=== PATIENT | male | born 1940 | race Caucasian/White ===

== ENCOUNTER 2023-11-10 15:16 | Inpatient (IN) ==
--- NOTE | 2023-11-10 15:23 | DR.WEAKNES ---
HPI Time Seen Time Seen by Provider: 11/10/23 15:23 Complaints Chief Complaint Doctors Comments: Patient presents with complaint of generalized weakness. He states that he has had several surgeries in the past 9 days: pacemaker placement,stent placement at [facility].Patient was d/c in the past several days from [facility] and presents with severe generalized weakness. Patient denies:fever,sob,n,v Timing Symptom Onset: Unknown Context Stroke Symptoms: None PMH PMH Past Medical History: Coronary Artery Disease, Dyslipidemia, Hypertension and GA Past Surgical History: Yes Surgical History: Tonsillectomy Family History Family Medical History: Cancer, GA, Coronary Artery Disease and Hypertension Social History Do you use any recreational Drugs:: No ROS Review of Systems Constitutional: Chills; negative Fever Eyes: No Symptoms Reported Respiratoy: No Symptoms Reported Cardiovascular: No Symptoms Reported Gastrointestinal/Abdominal: No Symptoms Reported Genitourinary: No Symptoms Reported Neurological: Headache and Weakness Musculoskeletal: No Symptoms Reported Integumentary: No Symptoms Reported Hematologic/Lymphatic: No Symptoms Reported Endocrine: No Symptoms Reported Psychiatric: No Symptoms Reported All Other Systems: Reviewed and Negative PE Vital Signs Vitals: Vital Signs Temperature 98.5 F Pulse Rate 72 Pulse Rate 75 Pulse Rate 69 Pulse Rate 79 Pulse Rate 70 Pulse Rate 97 Pulse Rate 77 Pulse Rate 74 Pulse Rate 70 Pulse Rate 70 Pulse Rate 70 Pulse Rate 86 Pulse Rate 75 Pulse Rate 68 Pulse Rate 85 Pulse Rate 71 Pulse Rate 70 Pulse Rate 73 Pulse Rate 73 Pulse Rate 71 Pulse Rate 69 Pulse Rate 71 Pulse Rate 75 Pulse Rate 76 Pulse Rate 74 Pulse Rate 69 Pulse Rate 70 Pulse Rate 79 Pulse Rate 69 Pulse Rate 69 Pulse Rate 71 Respiratory Rate 11 Respiratory Rate 9 Respiratory Rate 11 Respiratory Rate 9 Respiratory Rate 17 Respiratory Rate 13 Respiratory Rate 12 Blood Pressure 169/104 Blood Pressure 178/98 Blood Pressure 169/93 Blood Pressure 169/93 Blood Pressure 178/102 Blood Pressure 170/96 Blood Pressure 210/108 Blood Pressure 162/99 Blood Pressure 164/95 Blood Pressure 187/106 Blood Pressure 195/104 Blood Pressure 197/95 Blood Pressure 175/98 Blood Pressure 169/99 Blood Pressure 182/100 O2 Sat by Pulse Oximetry 96 O2 Sat by Pulse Oximetry 97 O2 Sat by Pulse Oximetry 98 O2 Sat by Pulse Oximetry 97 O2 Sat by Pulse Oximetry 97 O2 Sat by Pulse Oximetry 96 O2 Sat by Pulse Oximetry 96 O2 Sat by Pulse Oximetry 97 O2 Sat by Pulse Oximetry 96 O2 Sat by Pulse Oximetry 98 O2 Sat by Pulse Oximetry 97 O2 Sat by Pulse Oximetry 95 O2 Sat by Pulse Oximetry 97 O2 Sat by Pulse Oximetry 95 O2 Sat by Pulse Oximetry 97 O2 Sat by Pulse Oximetry 98 O2 Sat by Pulse Oximetry 98 O2 Sat by Pulse Oximetry 99 O2 Sat by Pulse Oximetry 99 O2 Sat by Pulse Oximetry 98 O2 Sat by Pulse Oximetry 96 O2 Sat by Pulse Oximetry 98 O2 Sat by Pulse Oximetry 98 O2 Sat by Pulse Oximetry 97 O2 Sat by Pulse Oximetry 98 O2 Sat by Pulse Oximetry 97 O2 Sat by Pulse Oximetry 96 O2 Sat by Pulse Oximetry 97 O2 Sat by Pulse Oximetry 96 O2 Sat by Pulse Oximetry 97 O2 Sat by Pulse Oximetry 98 General Limitations: No Limitations General Appearance: Alert and In No Apparent Distress Head Head Exam: Normal Inspection Eyes Eye exam: Normal Appearance Eyelids: Normal Inspection: Bilateral Pupils: Regular, Round: Bilateral Sclera/Conjunctival: Normal Inspection: Bilateral Anterior Chamber: Normal Inspection: Bilateral ENT ENT Exam: Normal Exam Mouth Exam: Normal Inspection Throat Exam: Normal Inspection Neck Neck Exam: Normal Inspection Chest Chest Inspection: Normal Inspection Respiratory Respiratory Exam: Normal Lung Sounds Bilat Respiratory Exam: Bilateral: Clear to Auscultation Cardiovascular Cardiovascular Exam: Regular Rate and Normal Rhythm Abdominal Exam Abdominal Exam: Normal Inspection, Normal Bowel Sounds and Soft Extremities Extremities Exam: Normal Inspection Back Back Exam: Normal Inspection Neurologic Neurological Exam: Alert and Oriented X3 Psychiatric Psychiatric Exam: Normal Affect and Normal Mood Skin Skin Exam: Warm, Dry, Intact and Normal Color MDM Differential Diagnosis Differential Diagnosis: Electrolyte Disorder Differential Diagnosis Comment: GA,Pneumonia,UTI COURSE Treatment Treatment: Patient was placed in monitored room his sodium was 129 and he was given normal saline 500 mL bolus and then placed on normal saline at 80 mL an hour, his chest x-ray revealed mild CHF and possible interstitial pneumonia. He had an elevated D- dimer and the CTA of his chest revealed no PE, bilateral pulmonary nodules, bilateral pneumonia.Patient has a pos Covid-19. Patient received Levaquin 750 mg IV. Patient had an elevation of his blood pressure to 210/108 and was given clonidine 0.1 mg p.o. His repeat pressure was 178/102. Patient has a normal white count, stable hemoglobin and hematocrit, his CMP was otherwise stable, his CRP and lactic acid are more in the normal range. Patient had a magnesium of 1.8 and received magnesium IV 2 g. Patient continues to be stable in the ED. Discussed case with Dr. Markham who has accepted the patient to his service. [facility] Labs Reviewed Laboratory Results Reviewed?: Yes 11/10/23 15:40 11/10/23 15:40 Laboratory: WBC 4.7 X10^3/uL (3.6-10.0) 11/10/23 15:40 RBC 3.84 X10^6/uL (4.7-6.0) L 11/10/23 15:40 Hgb 12.7 g/dL (13.5-18.0) L 11/10/23 15:40 Hct 36.5 % (42.0-54.0) L 11/10/23 15:40 MCV 95.1 fL (80.0-100.0) 11/10/23 15:40 MCH 33.2 pg (27.0-34.0) 11/10/23 15:40 MCHC 34.9 g/dL (33.0-35.0) 11/10/23 15:40 RDW 12.8 % (11.6-16.5) 11/10/23 15:40 Plt Count 222 X10^3/uL (150.0-450.0) 11/10/23 15:40 MPV 7.9 fL (7.4-11.0) 11/10/23 15:40 Neut % (Auto) 60.5 % (42.0-75.0) 11/10/23 15:40 Lymph % (Auto) 24.6 % (21.0-51.0) 11/10/23 15:40 [place] % (Auto) 10.9 % (0.0-13.0) 11/10/23 15:40 Eos % (Auto) 3.3 % (0.9-2.9) H 11/10/23 15:40 Baso % (Auto) 0.7 % (0.2-1.0) 11/10/23 15:40 Neut # (Auto) 2.8 x10^3/uL (2.2-4.8) 11/10/23 15:40 Lymph # (Auto) 1.1 X10^3/uL (1.3-2.9) L 11/10/23 15:40 [place] # (Auto) 0.5 x10^3/uL (0.3-0.8) 11/10/23 15:40 Eos # (Auto) 0.2 x10^3/uL (0.0-0.2) 11/10/23 15:40 Baso # (Auto) 0.0 X10^3/uL (0.0-0.1) 11/10/23 15:40 Absolute Nucleated RBC 0.1 /100WBC 11/10/23 15:40 D-Dimer 0.66 ug/ml (0.0-0.57) H 11/10/23 15:40 Sodium 129 mmol/L (136-145) L 11/10/23 15:40 Corrected Sodium TNP 11/10/23 15:40 Potassium 4.1 mmol/L (3.5-5.1) 11/10/23 15:40 Chloride 95 mmol/L (98-107) L 11/10/23 15:40 Carbon Dioxide 27.8 mmol/L (21-32) 11/10/23 15:40 BUN 13 mg/dL (7-18) 11/10/23 15:40 Creatinine 1.09 mg/dL (0.70-1.30) 11/10/23 15:40 Est GFR (MDRD) Af Amer > 60 (>60) 11/10/23 15:40 Est GFR (MDRD) Non-Af > 60 (>60) 11/10/23 15:40 Glucose 100 mg/dL (65-99) H 11/10/23 15:40 Lactic Acid 0.8 mmol/L (0.4-2.0) 11/10/23 15:40 Calcium 8.6 mg/dL (8.5-10.1) 11/10/23 15:40 Corrected Calcium 9.2 mg/dL (8.5-10.1) 11/10/23 15:40 Magnesium 1.8 mg/dL (2.0-2.9) L 11/10/23 15:40 Total Bilirubin 0.50 mg/dL (0.2-1.0) 11/10/23 15:40 AST 18 Units/L (15-37) 11/10/23 15:40 ALT 13 Units/L (12-78) 11/10/23 15:40 Alkaline Phosphatase 62 Units/L (46-116) 11/10/23 15:40 Creatine Kinase 50 Units/L (39-308) 11/10/23 15:40 Troponin I High Sens 22.8 ng/L (4.0-60.0) 11/10/23 21:39 C-Reactive Protein 0.70 mg/L (0-3.0) 11/10/23 15:40 B-Natriuretic Peptide 114 pg/mL (0-79) H 11/10/23 15:40 Total Protein 6.4 g/dL (6.4-8.2) 11/10/23 15:40 Albumin 3.3 g/dL (3.4-5.0) L 11/10/23 15:40 Globulin 3.1 g/dL (2.5-4.5) 11/10/23 15:40 Albumin/Globulin Ratio 1.1 Ratio (1.1-2.1) 11/10/23 15:40 Specimen Type Clean catch urine 11/10/23 16:27 Urine Color Pale yellow (YELLOW) 11/10/23 16:27 Urine Appearance Clear (CLEAR) 11/10/23 16:27 Urine pH 7.0 (5.0 - 8.0) 11/10/23 16:27 Ur Specific [place] 1.015 (1.000-1.030) 11/10/23 16:27 Urine Protein Negative (NEGATIVE) 11/10/23 16:27 Urine Glucose (UA) Negative (NEGATIVE) 11/10/23 16:27 Urine Ketones Negative (NEGATIVE) 11/10/23 16:27 Urine Blood Negative (NEGATIVE) 11/10/23 16:27 Urine Nitrite Negative (NEGATIVE) 11/10/23 16:27 Urine Bilirubin Negative (NEGATIVE) 11/10/23 16:27 Urine Urobilinogen Normal (NORMAL) 11/10/23 16:27 Ur Leukocyte Esterase Negative (NEGATIVE) 11/10/23 16:27 SARS-CoV-2 (PCR) Positive (NEGATIVE) A 11/10/23 15:42 Influenza Type A (PCR) Negative (NEGATIVE) 11/10/23 15:42 Influenza Type B (PCR) Negative (NEGATIVE) 11/10/23 15:42 RSV (PCR) Negative (NEGATIVE) 11/10/23 15:42 XRAY XRAY Interpreted by: Radiologist X-ray Results: EXAM: CHEST X-RAY HISTORY: Shortness of breath. Weakness. TECHNIQUE: AP CXR dated November 10, 2023 at 4:16 PM. COMPARISON: CXR dated October 30, 2023 FINDINGS: There is a left anterior chest wall subclavian cardiac pacemaker with intact pacer wires to the right atrium and right ventricle. There is mild cardiomegaly. There is aortic atherosclerosis. The pulmonary vascularity and interstitial markings are mildly prominent in keeping with minimal CHF or volume overload in the appropriate clinical setting (consider interstitial pneumonia in the appropriate clinical setting). There is no acute parenchymal infiltrate, pleural effusion, or pneumothorax seen. There is diffuse osteopenia. The visualized bony structures are otherwise within normal limits. IMPRESSION: 1. Findings consistent with minimal CHF or volume overload in the appropriate clinical setting (consider interstitial pneumonia in the appropriate clinical setting); new finding. 2. Recommend clinical correlation and appropriate follow-up evaluation to complete clearance. THIS IS AN ELECTRONICALLY VERIFIED FINAL REPORT 11/10/2023 4:29 PM - Electronically signed by Diane Van EXAM: CTA, CHEST HISTORY: ELEVATED D-DIMER; shortness of breath, WEAKNESS, PT IS POSITIVE FOR COVID COMPARISON: Frontal chest radiograph November 10, 2023 TECHNIQUE: CT angiography of the chest with intravenous contrast. Three-dimensional reconstructions and/or MIPS images were produced and reviewed. FINDINGS: Adequate bolus timing. Negative for pulmonary embolus. Heart is enlarged. Limited visualization of the upper abdomen demonstrates no acute process. 7 mm noncalcified pulmonary nodule right middle lobe. There is a subjacent 8 mm noncalcified pulmonary nodule right middle lobe. There is an additional right middle lobe noncalcified pulmonary nodule measuring 7 mm. 6 mm non calcified pulmonary nodule right upper lobe. Mild ground-glass airspace opacities in the left lower lobe and the right upper lobe. There is a left lower lobe pulmonary cyst present spanning 2.6 cm. Scattered micronodular densities are present in the left upper lobe. There is a left upper lobe noncalcified nodular density spanning 8 mm anteriorly. Multilevel degenerative spinal changes and anterior osteophytes suggestive of DISH. IMPRESSION: Negative for pulmonary embolus. Mild airspace infiltrates bilaterally are nonspecific and could represent mild edema or developing pneumonia. Bilateral noncalcified pulmonary nodules are indeterminate and warrant short interval CT surveillance in 3 months. Dose reduction techniques including automated exposure control (AEC) and a djustment of mA and kv were utilized. THIS IS AN ELECTRONICALLY VERIFIED FINAL REPORT 11/10/2023 6:01 PM - Electronically signed by Marshall Mendoza MD Opioid Opioid Risk Tool Age (Marquise box if 16-45): No History of Preadolescent Sexual Abuse: No Total: 0 Total Score Risk Category: Low Risk Copyright: [facility] predicting aberrant behaviors Discharge Plan Diagnosis Discharge Problem: Weakness, Bilateral pneumonia, COVID-19, Acute hyponatremia, Hypomagnesemia, Mild congestive heart failure Discharge Plan Patient Disposition: ADMITTED INPATIENT Condition: Stable Prescriptions: No Action sotalol 80 mg Tablet 40 mg PO BID tramadol 50 mg Tablet 50 mg PO QHS tamsulosin [Flomax] 0.4 mg Capsule 0.4 mg PO QDAY pantoprazole [Protonix] 40 mg Tablet,Delayed Release (Dr/Ec) 40 mg PO BID lovastatin 20 mg Tablet 20 mg PO QPM Brilinta 90 mg Tablet 90 mg PO BID Eliquis 5 mg Tablet 5 mg PO BID Health Concerns: Post Hospitalization: new medications and changes needed to prevent readmission or further decline. Pt educated and given instructions on all concerns. Plan of Treatment: Continue with present treatment and follow up plan. Pt is to keep follow up appointment as instructed and take medications as ordered. Orders to Discharge Patient Discharge Orders: Transfer (Routine); Ordered 11/10/23 Ordered By: Gladys Jimenez Follow ups/Referrals Follow ups/Referrals: Carl Maloney [Primary Care Provider] - 3 days Instructions Stand Alone Forms: Post Hospital Follow Up Care
[2023-11-10 15:45] LABS: BASOPHILS % (AUTO) 0.7 % (0.2-1.0); EOSINOPHILS # (AUTO) 0.2 x10^3/uL (0.0-0.2); EOSINOPHILS % (AUTO) 3.3 % (0.9-2.9); HEMATOCRIT 36.5 % (42.0-54.0); HEMOGLOBIN 12.7 g/dL (13.5-18.0); LYMPHOCYTES # (AUTO) 1.1 X10^3/uL (1.3-2.9); LYMPHOCYTES % (AUTO) 24.6 % (21.0-51.0); MEAN CORPUSCULAR HEMOGLOBIN 33.2 pg (27.0-34.0); MEAN CORPUSCULAR HGB CONC 34.9 g/dL (33.0-35.0); MEAN CORPUSCULAR VOLUME 95.1 fL (80.0-100.0); MEAN PLATELET VOLUME 7.9 fL (7.4-11.0); MONOCYTES # (AUTO) 0.5 x10^3/uL (0.3-0.8); MONOCYTES % (AUTO) 10.9 % (0.0-13.0); NEUTROPHILS # (AUTO) 2.8 x10^3/uL (2.2-4.8); NEUTROPHILS % (AUTO) 60.5 % (42.0-75.0); PLATELET COUNT 222 X10^3/uL (150.0-450.0); RED BLOOD COUNT 3.84 X10^6/uL (4.7-6.0); RED CELL DISTRIBUTION WIDTH 12.8 % (11.6-16.5); WHITE BLOOD COUNT 4.7 X10^3/uL (3.6-10.0)
--- NOTE | 2023-11-10 15:47 | EKG ---
Test Reason : weakness,infn,chf Blood Pressure : */* mmHG Vent. Rate : 70 BPM Atrial Rate : 70 BPM P-R Int : 216 ms QRS Dur : 108 ms QT Int : 418 ms P-R-T Axes : 13 -56 85 degrees QTc Int : 451 ms Atrial-paced rhythm with prolonged AV conduction Left anterior fascicular block Nonspecific T wave abnormality Abnormal ECG When compared with ECG of 30-OCT-2023 14:24, ST no longer elevated in Inferior leads ST no longer elevated in Anterolateral leads Confirmed by Juancarlos Mckinney MD ([id number]) on 11/11/2023 7:48:17 AM Referred By: Confirmed By: Juancarlos Mckinney MD
[2023-11-10 16:00] LABS: ALANINE AMINOTRANSFERASE 13 Units/L (12-78); ALBUMIN 3.3 g/dL (3.4-5.0); ALKALINE PHOSPHATASE 62 Units/L (46-116); ASPARTATE AMINO TRANSFERASE 18 Units/L (15-37); BLOOD UREA NITROGEN 13 mg/dL (7-18); CALCIUM 8.6 mg/dL (8.5-10.1); CARBON DIOXIDE 27.8 mmol/L (21-32); CHLORIDE 95 mmol/L (98-107); COR CA(FOR HYPOALB) 9.2 mg/dL (8.5-10.1); CREATINE KINASE 50 Units/L (39-308); CREATININE 1.09 mg/dL (0.70-1.30); GLUCOSE 100 mg/dL (65-99); MAGNESIUM 1.8 mg/dL (2.0-2.9); POTASSIUM 4.1 mmol/L (3.5-5.1); SODIUM 129 mmol/L (136-145); TOTAL PROTEIN 6.4 g/dL (6.4-8.2); eGFR NON BLACK RACES > 60 (>60)
[2023-11-10] MEDS ORDERED: NS 1,000 ML IV 1,000 ML ONE (16:19)
[2023-11-10] MEDS: NS 1,000 ML IV 1,000 ML IV SCH (16:27)
[2023-11-10] MEDS: MAGNESIUM SULFATE 1 GRAM/100 mL PREMIX 1 G/100 ML BAG IV ONE (16:28)
--- NOTE | 2023-11-10 16:32 | RAD ---
EXAM: CHEST X-RAYHISTORY: Shortness of breath. Weakness.TECHNIQUE: AP CXR dated November 10, 2023 at 4:16 PM.COMPARISON: CXR dated October 30, 2023FINDINGS:There is a left anterior chest wall subclavian cardiac pacemaker with intact pacer wires to the right atrium and right ventricle. There is mild cardiomegaly. There is aortic atherosclerosis.The pulmonary vascularity and interstitial markings are mildly prominent in keeping with minimal CHF or volume overload in the appropriate clinical setting (consider interstitial pneumonia in the appropriate clinical setting). There is no acute parenchymal infiltrate, pleural effusion, or pneumothorax seen.There is diffuse osteopenia. The visualized bony structures are otherwise within normal limits.IMPRESSION:1. Findings consistent with minimal CHF or volume overload in the appropriate clinical setting (consider interstitial pneumonia in the appropriate clinical setting); new finding.2. Recommend clinical correlation and appropriate follow-up evaluation to complete clearance.THIS IS AN ELECTRONICALLY VERIFIED FINAL REPORT11/10/2023 4:29 PM - Electronically signed by Diane Van
[2023-11-10 16:39] LABS: BILIRUBIN,URINE NEGATIVE (NEGATIVE); BLOOD/HEMOGLOBIN,URINE NEGATIVE (NEGATIVE); GLUCOSE, URINE NEGATIVE (NEGATIVE); KETONES,URINE NEGATIVE (NEGATIVE); LEUKOCYTE ESTERASE ,URINE NEGATIVE (NEGATIVE); NITRITES,URINE NEGATIVE (NEGATIVE); PROTEIN,URINE NEGATIVE (NEGATIVE); UROBILINOGEN,URINE NORMAL (NORMAL)
[2023-11-10 16:41] LABS: APPEARANCE,URINE CLEAR (CLEAR); COLOR,URINE PALE YELLOW (YELLOW)
[2023-11-10] MEDS: OMNIPAQUE 350 mg/mL 100 mL BTL 100 ML ONE (17:06)
--- NOTE | 2023-11-10 18:05 | CT ---
EXAM:CTA, CHESTHISTORY:ELEVATED D-DIMER; shortness of breath, WEAKNESS, PT IS POSITIVE FOR COVIDCOMPARISON:Frontal chest radiograph November 10, 2023TECHNIQUE:CT angiography of the chest with intravenous contrast. Three-dimensional reconstructions and/or MIPS images were produced and reviewed.FINDINGS:Adequate bolus timing. Negative for pulmonary embolus. Heart is enlarged. Limited visualization of the upper abdomen demonstrates no acute process.7 mm noncalcified pulmonary nodule right middle lobe. There is a subjacent 8 mm noncalcified pulmonary nodule right middle lobe. There is an additional right middle lobe noncalcified pulmonary nodule measuring 7 mm.6 mm non calcified pulmonary nodule right upper lobe. Mild ground-glass airspace opacities in the left lower lobe and the right upper lobe. There is a left lower lobe pulmonary cyst present spanning 2.6 cm. Scattered micronodular densities are present in the left upper lobe. There is a left upper lobe noncalcified nodular density spanning 8 mm anteriorly. Multilevel degenerative spinal changes and anterior osteophytes suggestive of DISH.IMPRESSION:Negative for pulmonary embolus.Mild airspace infiltrates bilaterally are nonspecific and could represent mild edema or developing pneumonia.Bilateral noncalcified pulmonary nodules are indeterminate and warrant short interval CT surveillance in 3 months.Dose reduction techniques including automated exposure control (AEC) and adjustment of mA and kv were utilized.THIS IS AN ELECTRONICALLY VERIFIED FINAL REPORT11/10/2023 6:01 PM - Electronically signed by Marshall Mendoza MD
[2023-11-10] MEDS: CATAPRES TAB 0.1 MG PO ONE ×2 (20:16→21:27)
[2023-11-10] MEDS ORDERED: CATAPRES TAB 0.1 MG ONE (20:16)
[2023-11-10] MEDS ORDERED: LEVAQUIN PREMIX IV 750 MG 750 MG/150 ML BAG IV ONE (20:30)
[2023-11-10] MEDS: LEVAQUIN PREMIX IV 750 MG 750 MG/150 ML BAG IV ONE (20:35)
--- NOTE | 2023-11-10 21:51 | EKG ---
Test Reason : weakness Blood Pressure : */* mmHG Vent. Rate : 70 BPM Atrial Rate : 70 BPM P-R Int : 218 ms QRS Dur : 108 ms QT Int : 432 ms P-R-T Axes : 37 -54 83 degrees QTc Int : 466 ms Atrial-paced rhythm with prolonged AV conduction Incomplete right bundle branch block Left anterior fascicular block Lateral infarct , age undetermined Abnormal ECG When compared with ECG of 10-NOV-2023 15:37, (Unconfirmed) No significant change was found Confirmed by Juancarlos Mckinney MD ([id number]) on 11/11/2023 7:46:51 AM Referred By: Confirmed By: Juancarlos Mckinney MD
[2023-11-10] MEDS ORDERED: OFIRMEV IV 1000 MG VIAL 1,000 MG/100 ML VIAL IV PRN (22:03)
[2023-11-10 23:52] VITALS: BMI 23.8
[2023-11-10] MEDS: NS 1,000 ML IV 1,000 ML ONE (23:53)
--- NOTE | 2023-11-11 00:25 | EKG ---
Test Reason : Weakness Blood Pressure : */* mmHG Vent. Rate : 70 BPM Atrial Rate : 70 BPM P-R Int : 222 ms QRS Dur : 110 ms QT Int : 422 ms P-R-T Axes : 30 -62 87 degrees QTc Int : 455 ms Atrial-paced rhythm with prolonged AV conduction Left anterior fascicular block Nonspecific T wave abnormality Abnormal ECG When compared with ECG of 10-NOV-2023 21:48, (Unconfirmed) No significant change was found Confirmed by Juancarlos Mckinney MD ([id number]) on 11/11/2023 7:46:10 AM Referred By: Confirmed By: Juancarlos Mckinney MD
[2023-11-11] MEDS ORDERED: MAGNESIUM SULFATE 1 GRAM/100 mL PREMIX 1 G/100 ML BAG IV SCH (02:00)
[2023-11-11 04:12] LABS: BASOPHILS % (AUTO) 0.4 % (0.2-1.0); EOSINOPHILS # (AUTO) 0.2 x10^3/uL (0.0-0.2); EOSINOPHILS % (AUTO) 3.5 % (0.9-2.9); HEMATOCRIT 35.9 % (42.0-54.0); HEMOGLOBIN 12.5 g/dL (13.5-18.0); LYMPHOCYTES # (AUTO) 0.8 X10^3/uL (1.3-2.9); LYMPHOCYTES % (AUTO) 17.6 % (21.0-51.0); MEAN CORPUSCULAR HEMOGLOBIN 33.1 pg (27.0-34.0); MEAN CORPUSCULAR HGB CONC 34.9 g/dL (33.0-35.0); MEAN CORPUSCULAR VOLUME 94.9 fL (80.0-100.0); MEAN PLATELET VOLUME 8.4 fL (7.4-11.0); MONOCYTES # (AUTO) 0.6 x10^3/uL (0.3-0.8); MONOCYTES % (AUTO) 13.2 % (0.0-13.0); NEUTROPHILS % (AUTO) 65.3 % (42.0-75.0); PLATELET COUNT 218 X10^3/uL (150.0-450.0); RED BLOOD COUNT 3.78 X10^6/uL (4.7-6.0); RED CELL DISTRIBUTION WIDTH 12.6 % (11.6-16.5); WHITE BLOOD COUNT 4.6 X10^3/uL (3.6-10.0)
[2023-11-11 04:23] LABS: ALANINE AMINOTRANSFERASE 11 Units/L (12-78); ALBUMIN 2.9 g/dL (3.4-5.0); ALKALINE PHOSPHATASE 58 Units/L (46-116); ASPARTATE AMINO TRANSFERASE 15 Units/L (15-37); BLOOD UREA NITROGEN 11 mg/dL (7-18); CALCIUM 8.4 mg/dL (8.5-10.1); CARBON DIOXIDE 27.1 mmol/L (21-32); CHLORIDE 100 mmol/L (98-107); COR CA(FOR HYPOALB) 9.3 mg/dL (8.5-10.1); CREATININE 1.02 mg/dL (0.70-1.30); GLUCOSE 99 mg/dL (65-99); POTASSIUM 3.9 mmol/L (3.5-5.1); SODIUM 133 mmol/L (136-145); TOTAL PROTEIN 5.9 g/dL (6.4-8.2); eGFR NON BLACK RACES > 60 (>60)
[2023-11-11] MEDS ORDERED: CONSULT PHARMACY - POTASSIUM & MAGNESIUM XX SCH (06:00)
[2023-11-11] MEDS: CATAPRES TAB 0.1 MG PO ONE (06:19)
[2023-11-11] MEDS: SALINE 0.9% 3 ML NEB TX ONE (06:39)
[2023-11-11] MEDS: CONSULT PHARMACY - POTASSIUM & MAGNESIUM XX SCH (07:19)
[2023-11-11] MEDS: MAALOX or MYLANTA PO PRN (08:55)
[2023-11-11] MEDS: BETAPACE AF PO SCH (08:56)
[2023-11-11] MEDS: FLOMAX PO SCH (08:56)
[2023-11-11] MEDS: ELIQUIS PO SCH (08:56)
[2023-11-11] MEDS: PROTONIX TAB 40 MG PO SCH (08:56)
[2023-11-11] MEDS: K-DUR TAB 20 MEQ PO SCH (08:56)
[2023-11-11] MEDS: MAG-OX TAB PO SCH (08:56)
[2023-11-11] MEDS: BRILINTA PO SCH (08:56)
--- NOTE | 2023-11-11 11:47 | DR.H&P ---
H&P - History & Physical for Day of: H&P Date: 11/10/23 - Chief Complaint Chief Complaint: WEAKNESS, S/P STEMI - History of Present Illness History of Present Illness: IS A 83 YEAR OLD PATIENT OF OURS. HIS MEDICAL HX INCLUDES: CAD, DYSLIPIDEMIA, HTN, GA, BPH, TONSILLECTOMY, CARDIAC STENTS, AND PRESENCE OF PACEMAKER. PATIENT PRESENTED TO THE ER WITH COMPLAINTS OF SEVERE GENERALIZED WEAKNESS. HE DENIES FEVER, SOB, N/V. PATIENT REPORTS THAT HE HAD A PACEMAKER PUT IN ABOUT TWO WEEKS AGO AT [facility]. HE REPORTS THAT AFTER DISCHARGE HOME, HE HAD TO PRESENT BACK TO THE ER ON 10/30/23 DUE TO CHEST PAIN AND WEAKNESS. HE WAS DIAGNOSED WITH A STEMI AT THAT TIME AND TRANSFERRED BACK TO [facility]. HE UNDERWENT CATHETERIZATION AND HAD CARDIAC STENTS PLACED. PATIENT REPORTS THAT SINCE DISCHARGE FROM [facility], HE HAS HAD INCREASING WEAKNESS. ON ARRIVAL TO THE HOSPITAL, HIS VITALS WERE: 98.5-69-12-97%RA-182/100. LABS WERE OBTAINED. WBC 4.7, RBC 3.84, HGB 12.7, HCT 36.5, PLT COUNT 222, D-DIMER 0.66, SODIUM 129, POTASSIUM 4.1, CHLORIDE 95, BUN 13, CREATININE 1.09, GLUCOSE 100, LACTIC ACID 0.8, CALCIUM 8.6, MAGNESIUM 1.8, AST 18, ALT 13, ALK PHOS 62, CREATINE KINASE 50, TROPONIN 17.4, CRP 0.70, BNP 114, TOTAL PROTEIN 6.4, ALBUMIN 3.3. COVID-19 POSITIVE. INFLUENZA AND RSV WERE NEGATIVE. A URINALYSIS WAS OBTAINED AND WAS UNREMARKABLE. EKG WAS OBTAINED AND REVEALED: ATRIAL PACED RHYTHM WITH PROLONGED AV CONDUCTION. HR 70 BPM. A CHEST XRAY WAS OBTAINED AND REVEALED: 1. Findings consistent with minimal CHF or volume overload in the appropriate clinical setting (consider interstitial pneumonia in the appropriate clinical setting); new finding. 2. Recommend clinical correlation and appropriate follow-up evaluation to complete clearance. A CHEST CTA WAS OBTAINED AND REVEALED: Negative for pulmonary embolus. Mild airspace infiltrates bilaterally are nonspecific and could represent mild edema or developing pneumonia. Bilateral noncalcified pulmonary nodules are indeterminate and warrant short interval CT surveillance in 3 months. IN THE ER, PATIENT WAS GIVEN MAGNESIUM SULFATE 1G IV X 1, CATAPRES 0.1MG PO X 1, LEVAQUIN 750MG IV X 1. HE WAS ADMITTED TO THE HOSPITAL INPATIENT STATUS FOR FURTHER EV ALUATION AND TREATMENT OF BILATERAL PNEUMONIA. COVID-19, CHF, GENERALIZED WEAKNESS, PHYSICAL DECONDITIONING S/P STEMI. HE WAS STARTED ON NORMAL SALINE AT 80 ML/HR, REMDESIVIR 100MG IV DAILY, LEVAQUIN 750MG IV DAILY, SOLU-MEDROL 40MG IV Q8H, TYLENOL 1G IV Q6H PRN, MAALOX 30ML Q4H PRN, GI COCKTAIL 15ML QID, PEPCID 20MG IV Q12H. HIS HOME MEDICATIONS OF ELIQUIS, PROTONIX, ZOCOR, SOTALOL, TAMSULOSIN, BRILINTA, AND TRAMADOL WERE RESUMED. WE WILL OBTAIN AN ECHOCARDIOGRAM. OTHERWISE, WE WILL FOLLOW-UP WITH AM LABS AND CHEST XRAY AND CONTINUE TO MONITOR. TIME SPENT ON CLINICAL ASSESSMENT, REVIEWING LABS AND IMAGING, DECISION MAKING, AND DOCUMENTATION GREATER THAN 75 MINUTES. - Past Medical History Past Medical History: GA, Coronary Artery Disease, Hypertension, Dyslipidemia - Past Surgical History Surgical History: Angioplasty/Stents, Tonsillectomy, Other - Family History Family Medical History: Cancer, GA, Coronary Artery Disease, Hypertension - Social History Does patient currently use any type of tobacco product: No Have you used tobacco products in the last 12 months: No Type of Tobacco Use: None Does any household member use tobacco: No Alcohol Use: None Drug Use: None - Review of Systems Constitutional: Weakness Eyes: No Symptoms Reported ENT: No Symptoms Reported Respiratory: No Symptoms Reported, Shortness of Breath Cardiovascular: No Symptoms Reported Gastrointestinal: Abdominal Pain Genitourinary: No Symptoms Reported Musculoskeletal: No Symptoms Reported Skin: No Symptoms Reported Neurological: Weakness - Physical Exam Vital Signs: Vital Signs Temperature 97.7 F Temperature 98.2 F Pulse Rate 69 Pulse Rate 69 Pulse Rate 69 Pulse Rate 70 Pulse Rate 71 Pulse Rate 71 Pulse Rate 69 Pulse Rate 69 Pulse Rate 70 Pulse Rate 69 Pulse Rate 72 Pulse Rate 69 Pulse Rate 69 Pulse Rate 69 Pulse Rate 70 Pulse Rate 69 Pulse Rate 69 Pulse Rate 72 Pulse Rate 69 Pulse Rate 69 Pulse Rate 69 Pulse Rate 69 Pulse Rate 69 Pulse Rate 69 Pulse Rate 70 Respiratory Rate 22 Respiratory Rate 13 Respiratory Rate 26 Respiratory Rate 22 Respiratory Rate 13 Respiratory Rate 12 Respiratory Rate 27 Respiratory Rate 27 Respiratory Rate 12 Respiratory Rate 10 Respiratory Rate 15 Respiratory Rate 12 Respiratory Rate 16 Respiratory Rate 15 Respiratory Rate 10 Respiratory Rate 17 Respiratory Rate 13 Respiratory Rate 15 Respiratory Rate 20 Respiratory Rate 12 Blood Pressure 117/62 Blood Pressure 114/66 Blood Pressure 146/89 Blood Pressure 171/100 Blood Pressure 168/99 Blood Pressure 165/94 Blood Pressure 188/102 Blood Pressure 163/93 Blood Pressure 187/103 Blood Pressure 173/99 Blood Pressure 171/99 Blood Pressure 155/94 Blood Pressure 181/99 Blood Pressure 180/97 Blood Pressure 176/98 Blood Pressure 172/99 O2 Sat by Pulse Oximetry 98 O2 Sat by Pulse Oximetry 89 O2 Sat by Pulse Oximetry 99 O2 Sat by Pulse Oximetry 98 O2 Sat by Pulse Oximetry 95 O2 Sat by Pulse Oximetry 98 O2 Sat by Pulse Oximetry 98 O2 Sat by Pulse Oximetry 98 O2 Sat by Pulse Oximetry 99 O2 Sat by Pulse Oximetry 98 O2 Sat by Pulse Oximetry 99 O2 Sat by Pulse Oximetry 99 O2 Sat by Pulse Oximetry 99 O2 Sat by Pulse Oximetry 100 O2 Sat by Pulse Oximetry 100 O2 Sat by Pulse Oximetry 99 O2 Sat by Pulse Oximetry 99 O2 Sat by Pulse Oximetry 100 O2 Sat by Pulse Oximetry 99 O2 Sat by Pulse Oximetry 99 O2 Sat by Pulse Oximetry 99 O2 Sat by Pulse Oximetry 99 O2 Sat by Pulse Oximetry 98 O2 Sat by Pulse Oximetry 97 O2 Sat by Pulse Oximetry 98 O2 Sat by Pulse Oximetry 98 Oriented: Normal Eyes: Normal Ear: Normal Nose: Normal Throat: Normal Respiratory: Diminished Throughout Cardiovascular: Normal : Normal Auscultation: Bowel Sounds: Normal Palpation: Normal Tenderness: Normal Skin: Normal Musculoskeletal: Normal Psychiatric: Normal Mood Description: Calm Affect: Normal Speech Pattern: Clear - Assessment/Plan (1) Bilateral pneumonia Qualifiers: Pneumonia type: due to unspecified organism Lung location: unspecified part of lung Qualified Code(s): J18.9 - Pneumonia, unspecified organism Status: Acute Plan: ADMIT, SUPPLEMENTAL OXYGEN, OBTAIN ECHO, NORMAL SALINE AT 80 ML/HR, REMDE SIVIR 100MG IV DAILY, LEVAQUIN 750MG IV DAILY, SOLU-MEDROL 40MG IV Q8H, TYLENOL 1G IV Q6H PRN, MAALOX 30ML Q4H PRN, GI COCKTAIL 15ML QID, PEPCID 20MG IV Q12H. HIS HOME MEDICATIONS OF ELIQUIS, PROTONIX, ZOCOR, SOTALOL, TAMSULOSIN, BRILINTA, AND TRAMADOL WERE RESUMED. (2) COVID-19 Status: Acute (3) CHF (congestive heart failure) Qualifiers: Heart failure type: unspecified Heart failure chronicity: acute Qualified Code(s): I50.9 - Heart failure, unspecified Status: Acute (4) Acute hyponatremia Status: Acute (5) Hypomagnesemia Status: Acute (6) Generalized weakness Status: Acute (7) Physical deconditioning Status: Acute (8) Recent ST elevation myocardial infarction (STEMI) Status: Acute (9) Status post coronary artery stent placement Status: Acute (10) Status post placement of other cardiac pacemaker Status: Acute (11) BPH (benign prostatic hyperplasia) Qualifiers: Lower urinary tract symptom presence: unspecified whether lower urinary tract symptoms present Qualified Code(s): N40.0 - Benign prostatic hyperplasia without lower urinary tract symptoms Status: Chronic (12) Hypertension Qualifiers: Hypertension type: primary hypertension Qualified Code(s): I10 - Essential (primary) hypertension Status: Chronic - Allergies Allergies/Adverse Reactions: Allergies Allergy/AdvReac Type Severity Reaction Status Date / Time amoxicillin Allergy Verified 11/11/23 00:04 nitroglycerin Allergy Verified 11/11/23 00:04 - Medications Home Medications: Home Medications Medication Instructions Recorded Confirmed apixaban 5 mg tablet (Eliquis) 5 mg PO BID 11/10/23 11/11/23 lovastatin 20 mg tablet 20 mg PO QPM 11/10/23 11/11/23 pantoprazole 40 mg tablet,delayed 40 mg PO BID 11/10/23 11/11/23 release (Protonix) sotalol 80 mg tablet 40 mg PO BID 11/10/23 11/11/23 tamsulosin 0.4 mg capsule (Flomax) 0.4 mg PO QDAY 11/10/23 11/11/23 ticagrelor 90 mg tablet (Brilinta) 90 mg PO BID 11/10/23 11/11/23 tramadol 50 mg tablet 50 mg PO QHS 11/10/23 11/11/23 meloxicam 15 mg tablet 15 mg PO QDAY 11/11/23 11/11/23
[2023-11-11] MEDS: LEVSIN/MAALOX/LIDOC VISC PO SCH (13:18)
[2023-11-11] MEDS: SOLU-Medrol 40 MG VIAL IVP SCH (13:18)
[2023-11-11] MEDS ORDERED: MAG-OX TAB ONE (13:21)
[2023-11-11] MEDS: REMDESIVIR 200 MG in NS 250 ML IV 250 ML IV NR (13:34)
[2023-11-11] MEDS: PEPCID 20 MG VIAL 20 MG in NS 50 ML IV 50 ML IV SCH (13:35)
[2023-11-11] MEDS: LEVAQUIN PREMIX IV 750 MG 750 MG/150 ML BAG IV SCH (20:00)
[2023-11-11] MEDS ORDERED: HEPARIN SODIUM IN D5W 25,000 UNITS/500 ML BAG IV PRN (21:00)
[2023-11-11] MEDS: ROBITUSSIN DM PO PRN (21:25)
[2023-11-11] MEDS: BENADRYL CAP 50 MG PO PRN (21:25)
[2023-11-11] MEDS: ULTRAM PO SCH (21:25)
[2023-11-11] MEDS: ZOCOR TAB 10 MG PO SCH (21:26)
--- NOTE | 2023-11-12 00:57 | RAD ---
EXAM:KUBHISTORY:ABD PAIN ; UnavailableCOMPARISON:None.FINDINGS:Eval uation of the abdomen demonstrates a normal bowel gas pattern. There is a moderate amount of fecal material throughout the colon. No pathological soft tissue mass or calcification can be observed. The bony structures are grossly intact. Advanced degenerative changes throughout the lumbar spine. The lung bases are clear.IMPRESSION:No evidence for acute abdominal pathology identified.THIS IS AN ELECTRONICALLY VERIFIED FINAL REPORT11/12/2023 12:53 AM - Electronically signed by Vasiliy Frazier MD
[2023-11-12 04:28] LABS: BASOPHILS % (AUTO) 0.1 % (0.2-1.0); HEMATOCRIT 38.2 % (42.0-54.0); HEMOGLOBIN 13.1 g/dL (13.5-18.0); LYMPHOCYTES # (AUTO) 0.4 X10^3/uL (1.3-2.9); LYMPHOCYTES % (AUTO) 8.1 % (21.0-51.0); MEAN CORPUSCULAR HEMOGLOBIN 32.8 pg (27.0-34.0); MEAN CORPUSCULAR HGB CONC 34.4 g/dL (33.0-35.0); MEAN CORPUSCULAR VOLUME 95.5 fL (80.0-100.0); MEAN PLATELET VOLUME 8.3 fL (7.4-11.0); MONOCYTES # (AUTO) 0.1 x10^3/uL (0.3-0.8); MONOCYTES % (AUTO) 2.6 % (0.0-13.0); NEUTROPHILS # (AUTO) 4.4 x10^3/uL (2.2-4.8); NEUTROPHILS % (AUTO) 89.2 % (42.0-75.0); PLATELET COUNT 239 X10^3/uL (150.0-450.0); RED CELL DISTRIBUTION WIDTH 13.1 % (11.6-16.5); WHITE BLOOD COUNT 4.9 X10^3/uL (3.6-10.0)
[2023-11-12 04:39] LABS: ALANINE AMINOTRANSFERASE 13 Units/L (12-78); ALBUMIN 3.1 g/dL (3.4-5.0); ALKALINE PHOSPHATASE 60 Units/L (46-116); ASPARTATE AMINO TRANSFERASE 16 Units/L (15-37); BLOOD UREA NITROGEN 13 mg/dL (7-18); CALCIUM 8.5 mg/dL (8.5-10.1); CARBON DIOXIDE 25.6 mmol/L (21-32); CHLORIDE 102 mmol/L (98-107); COR CA(FOR HYPOALB) 9.2 mg/dL (8.5-10.1); COR NA(FOR HYPERGLY) 137 mmol/L (136-145); CREATININE 1.08 mg/dL (0.70-1.30); GLUCOSE 131 mg/dL (65-99); POTASSIUM 4.3 mmol/L (3.5-5.1); SODIUM 136 mmol/L (136-145); TOTAL PROTEIN 6.3 g/dL (6.4-8.2); eGFR NON BLACK RACES > 60 (>60)
--- NOTE | 2023-11-12 06:12 | RAD ---
EXAM:Portable chestHISTORY:Shortness of breathCOMPARISON:11/10/2023 chest x-ray and CTA chestFINDINGS:There is a pacemaker present on the left obscuring a portion of the left upper lobe. Heart size is within normal limits. Erna are normal. Aorta is calcified. Lungs are well inflated and free of acute alveolar infiltrates. No pleural effusions are identified. Bony thorax is unremarkable.IMPRESSION:No significant abnormality identifiedTHIS IS AN ELECTRONICALLY VERIFIED FINAL REPORT11/12/2023 6:09 AM - Electronically signed by Jarrod Sanchez MD
[2023-11-12] MEDS: REMDESIVIR 100 MG in NS 250 ML IV 250 ML IV SCH (08:33)
[2023-11-12] MEDS ORDERED: LEVSIN/MAALOX/LIDOC VISC PO PRN (09:00)
--- NOTE | 2023-11-12 11:35 | PCM.PROG ---
Progress Note - Progress Note for Day of Date of Exam: 11/12/23 - Subjective Subjective: IS CURRENTLY INPATIENT STATUS FOR TREATMENT OF BILATERAL PNEUMONIA, COVID-19, CHF, ACUTE HYPONATREMIA, WEAKNESS, AND PHYSICAL DE CONDITIONING. PATIENT HAS HAD A RECENT STEMI AND IS STATUS POST PLACEMENT OF PACEMAKER AND CARDIAC STENTS. TODAY, HE IS ALERT AND ORIENTED, LYING IN BED ON MORNING ROUNDS. HE CONTINUES TO COMPLAIN OF GENERALIZED WEAKNESS THIS MORNING. HE DENIES CHEST PAIN SINCE ADMISSION AND NURSING STAFF REPORTS THAT HE HAS HAD AN UNEVENTFUL NIGHT. UPON EXAMINATION, HEART IS REGULAR IN RATE AND RHYTHM. BILATERAL LUNGS ARE NOTED WITH DIMINISHED LUNG SOUNDS THROUGHOUT. ABDOMEN IS ROUND, SOFT, AND NON-TENDER WITH NORMAL BOWEL SOUNDS NOTED IN ALL QUADRANTS. DIFFUSE UPPER AND LOWER EXTREMITY WEAKNESS NOTED. HIS VITALS THIS MORNING WERE: 97.7-72-34-100%-152/80. LABS WERE OBTAINED. WBC 4.9, RBC 4.00, HGB 13.0, HCT 38.2, PLT COUNT 239, SODIUM 136, POTASSIUM 4.3, CHLORIDE 102, BUN 13, CREATININE 1.08, GLUCOSE 131, CALCIUM 8.5, MAGNESIUM 2.0, TOTAL BILI 0.40, AST 16, ALT 13, ALK PHOS 60, TOTAL PROTEIN 6.3, ALBUMIN 3.1. AIT RESPIRATORY PANEL IS PENDING. SPUTUM CULTURE IS ALSO PENDING. A CHEST XRAY WAS REPEATED THIS MORNING AND REVEALED: There is a pacemaker present on the left obscuring a portion of the left upper lobe. Heart size is within normal limits. Erna are normal. Aorta is calcified. Lungs are well inflated and free of acute alveolar infiltrates. No pleural effusions are identified. Bony thorax is unremarkable. ECHO WAS OBTAINED YESTERDAY AND REVEALED AN EJECTION FRACTION OF 67%. RVSP 22mmHg. HE IS CURRENTLY RECEIVING NORMAL SALINE AT 80 ML/HR, REMDESIVIR 100MG IV DAILY, LEVAQUIN 750MG IV DAILY, SOLU-MEDROL 40MG IV Q8H, TYLENOL 1G IV Q6H PRN, MAALOX 30ML Q4H PRN, GI COCKTAIL 15ML QID, PEPCID 20MG IV Q12H. HIS HOME MEDICATIONS OF ELIQUIS, PROTONIX, ZOCOR, SOTALOL, TAMSULOSIN, BRILINTA, AND TRAMADOL WERE RESUMED. WE WILL CONTINUE WITH CURRENT PLAN OF CARE TODAY AND HAVE PHYSICAL THERAPY WORK WITH HIM. OTHERWISE, WE WILL FOLLOW-UP WITH AM LABS AND CHEST XRAY AND CONTINUE TO MONITOR. TIME SPENT ON CLINICAL ASSESSMENT, REVIEWING LABS AND IMAGING, DECISION MAKING, AND DOCUMENTATION GREATER THAN 45 MINUTES. - Past Medical Family Social History Past Med/Fam/Surg Hx: No changes since H&P Allergies: Allergies amoxicillin Allergy (Verified 11/11/23 00:04) nitroglycerin Allergy (Verified 11/11/23 00:04) - Review of Systems ROS: No change since H&P - Vital Signs and I&O's Vital Signs: Vital Signs Temperature 97.7 F Temperature 98.4 F Pulse Rate 69 Pulse Rate 72 Pulse Rate 96 Pulse Rate 71 Pulse Rate 69 Pulse Rate 69 Pulse Rate 85 Pulse Rate 72 Pulse Rate 70 Pulse Rate 69 Pulse Rate 72 Pulse Rate 69 Pulse Rate 69 Pulse Rate 75 Pulse Rate 78 Respiratory Rate 36 Respiratory Rate 25 Respiratory Rate 21 Respiratory Rate 16 Respiratory Rate 13 Respiratory Rate 39 Respiratory Rate 14 Respiratory Rate 34 Respiratory Rate 32 Respiratory Rate 24 Respiratory Rate 15 Respiratory Rate 14 Respiratory Rate 22 Respiratory Rate 15 Blood Pressure 155/80 Blood Pressure 174/90 Blood Pressure 137/69 Blood Pressure 152/80 Blood Pressure 171/88 Blood Pressure 164/86 Blood Pressure 162/88 Blood Pressure 171/92 O2 Sat by Pulse Oximetry 95 O2 Sat by Pulse Oximetry 99 O2 Sat by Pulse Oximetry 95 O2 Sat by Pulse Oximetry 98 O2 Sat by Pulse Oximetry 98 O2 Sat by Pulse Oximetry 100 O2 Sat by Pulse Oximetry 99 O2 Sat by Pulse Oximetry 100 O2 Sat by Pulse Oximetry 100 O2 Sat by Pulse Oximetry 100 O2 Sat by Pulse Oximetry 99 O2 Sat by Pulse Oximetry 100 O2 Sat by Pulse Oximetry 98 O2 Sat by Pulse Oximetry 100 O2 Sat by Pulse Oximetry 98 Intake and Output: Intake & Output 11/09/23 11/10/23 11/11/23 11/12/23 11:59 11:59 11:59 11:59 Intake Total 694 / 694 3097 / 3097 Output Total 100 / 100 1999 Balance 594 / 594 1097 / 1097 - Physical Exam Oriented: Normal Eyes: Normal Ear: Normal Nose: Normal Throat: Normal Respiratory: Generalized, Diminished Cardiovascular: Normal : Normal Auscultation: Bowel Sounds: Normal Palpation: Normal Tenderness: Normal Skin: Normal Musculoskeletal: Normal Psychiatric: Normal Mood Description: Calm Affect: Normal Speech Pattern: Clear, Appropriate - Laboratory and Diagnostics Result Diagrams: 11/12/23 04:00 11/12/23 04:00 Labs: 11/11/23 22:00 Sputum - Expectorated Sputum - Final Laboratory WBC 4.9 X10^3/uL (3.6-10.0) 11/12/23 04:00 RBC 4.00 X10^6/uL (4.7-6.0) L 11/12/23 04:00 Hgb 13.1 g/dL (13.5-18.0) L 11/12/23 04:00 Hct 38.2 % (42.0-54.0) L 11/12/23 04:00 MCV 95.5 fL (80.0-100.0) 11/12/23 04:00 MCH 32.8 pg (27.0-34.0) 11/12/23 04:00 MCHC 34.4 g/dL (33.0-35.0) 11/12/23 04:00 RDW 13.1 % (11.6-16.5) 11/12/23 04:00 Plt Count 239 X10^3/uL (150.0-450.0) 11/12/23 04:00 MPV 8.3 fL (7.4-11.0) 11/12/23 04:00 Neut % (Auto) 89.2 % (42.0-75.0) H 11/12/23 04:00 Lymph % (Auto) 8.1 % (21.0-51.0) L 11/12/23 04:00 [place] % (Auto) 2.6 % (0.0-13.0) 11/12/23 04:00 Eos % (Auto) 0.0 % (0.9-2.9) L 11/12/23 04:00 Baso % (Auto) 0.1 % (0.2-1.0) L 11/12/23 04:00 Neut # (Auto) 4.4 x10^3/uL (2.2-4.8) 11/12/23 04:00 Lymph # (Auto) 0.4 X10^3/uL (1.3-2.9) L 11/12/23 04:00 [place] # (Auto) 0.1 x10^3/uL (0.3-0.8) L 11/12/23 04:00 Eos # (Auto) 0.0 x10^3/uL (0.0-0.2) 11/12/23 04:00 Baso # (Auto) 0.0 X10^3/uL (0.0-0.1) 11/12/23 04:00 Absolute Nucleated RBC 0.1 /100WBC 11/12/23 04:00 D-Dimer 0.66 ug/ml (0.0-0.57) H 11/10/23 15:40 Sodium 136 mmol/L (136-145) 11/12/23 04:00 Corrected Sodium 137 mmol/L (136-145) 11/12/23 04:00 Potassium 4.3 mmol/L (3.5-5.1) 11/12/23 04:00 Chloride 102 mmol/L (98-107) 11/12/23 04:00 Carbon Dioxide 25.6 mmol/L (21-32) 11/12/23 04:00 BUN 13 mg/dL (7-18) 11/12/23 04:00 Creatinine 1.08 mg/dL (0.70-1.30) 11/12/23 04:00 Est GFR (MDRD) Af Amer > 60 (>60) 11/12/23 04:00 Est GFR (MDRD) Non-Af > 60 (>60) 11/12/23 04:00 Glucose 131 mg/dL (65-99) H 11/12/23 04:00 Lactic Acid 0.8 mmol/L (0.4-2.0) 11/10/23 15:40 Calcium 8.5 mg/dL (8.5-10.1) 11/12/23 04:00 Corrected Calcium 9.2 mg/dL (8.5-10.1) 11/12/23 04:00 Magnesium 2.0 mg/dL (2.0-2.9) 11/12/23 04:00 Total Bilirubin 0.40 mg/dL (0.2-1.0) 11/12/23 04:00 AST 16 Units/L (15-37) 11/12/23 04:00 ALT 13 Units/L (12-78) 11/12/23 04:00 Alkaline Phosphatase 60 Units/L (46-116) 11/12/23 04:00 Creatine Kinase 50 Units/L (39-308) 11/10/23 15:40 Troponin I High Sens 22.1 ng/L (4.0-60.0) 11/11/23 15:34 C-Reactive Protein 0.70 mg/L (0-3.0) 11/10/23 15:40 B-Natriuretic Peptide 114 pg/mL (0-79) H 11/10/23 15:40 Total Protein 6.3 g/dL (6.4-8.2) L 11/12/23 04:00 Albumin 3.1 g/dL (3.4-5.0) L 11/12/23 04:00 Globulin 3.2 g/dL (2.5-4.5) 11/12/23 04:00 Albumin/Globulin Ratio 1.0 Ratio (1.1-2.1) L 11/12/23 04:00 Specimen Type Clean catch urine 11/10/23 16:27 Urine Color Pale yellow (YELLOW) 11/10/23 16:27 Urine Appearance Clear (CLEAR) 11/10/23 16:27 Urine pH 7.0 (5.0 - 8.0) 11/10/23 16:27 Ur Specific [place] 1.015 (1.000-1.030) 11/10/23 16:27 Urine Protein Negative (NEGATIVE) 11/10/23 16:27 Urine Glucose (UA) Negative (NEGATIVE) 11/10/23 16:27 Urine Ketones Negative (NEGATIVE) 11/10/23 16:27 Urine Blood Negative (NEGATIVE) 11/10/23 16:27 Urine Nitrite Negative (NEGATIVE) 11/10/23 16:27 Urine Bilirubin Negative (NEGATIVE) 11/10/23 16:27 Urine Urobilinogen Normal (NORMAL) 11/10/23 16:27 Ur Leukocyte Esterase Negative (NEGATIVE) 11/10/23 16:27 SARS-CoV-2 (PCR) Positive (NEGATIVE) A 11/10/23 15:42 Influenza Type A (PCR) Negative (NEGATIVE) 11/10/23 15:42 Influenza Type B (PCR) Negative (NEGATIVE) 11/10/23 15:42 RSV (PCR) Negative (NEGATIVE) 11/10/23 15:42 - Plan (1) Bilateral pneumonia Status: Acute Qualifiers: Pneumonia type: due to unspecified organism Lung location: unspecified part of lung Qualified Code(s): J18.9 - Pneumonia, unspecified organism Plan: SUPPLEMENTAL OXYGEN, OBTAIN ECHO, NORMAL SALINE AT 80 ML/HR, REMDESIVIR 100MG IV DAILY, LEVAQUIN 750MG IV DAILY, SOLU-MEDROL 40MG IV Q8H, TYLENOL 1G IV Q6H PRN, MAALOX 30ML Q4H PRN, GI COCKTAIL 15ML QID, PEPCID 20MG IV Q12H. HIS HOME MEDICATIONS OF ELIQUIS, PROTONIX, ZOCOR, SOTALOL, TAMSULOSIN, BRILINTA, AND TRAMADOL WERE RESUMED. (2) COVID-19 Status: Acute (3) CHF (congestive heart failure) Status: Acute Qualifiers: Heart failure type: unspecified Heart failure chronicity: acute Qualified Code(s): I50.9 - Heart failure, unspecified (4) Acute hyponatremia Status: Acute (5) Hypomagnesemia Status: Acute (6) Generalized weakness Status: Acute (7) Physical deconditioning Status: Acute (8) Recent ST elevation myocardial infarction (STEMI) Status: Acute (9) Status post coronary artery stent placement Status: Acute (10) Status post placement of other cardiac pacemaker Status: Acute (11) BPH (benign prostatic hyperplasia) Status: Chronic Qualifiers: Lower urinary tract symptom presence: unspecified whether lower urinary tract symptoms present Qualified Code(s): N40.0 - Benign prostatic hyperplasia without lower urinary tract symptoms (12) Hypertension Status: Chronic Qualifiers: Hypertension type: primary hypertension Qualified Code(s): I10 - Essential (primary) hypertension
[2023-11-13] MEDS: APRESOLINE INJ 20 MG VIAL IVP ONE (00:32)
[2023-11-13 04:56] LABS: HEMOGLOBIN 12.2 g/dL (13.5-18.0); MEAN CORPUSCULAR HGB CONC 34.3 g/dL (33.0-35.0); NEUTROPHILS % (AUTO) 89.5 % (42.0-75.0); RED CELL DISTRIBUTION WIDTH 12.8 % (11.6-16.5)
[2023-11-13 05:02] LABS: BASOPHILS % (AUTO) 0.1 % (0.2-1.0); HEMATOCRIT 35.6 % (42.0-54.0); LYMPHOCYTES # (AUTO) 0.5 X10^3/uL (1.3-2.9); MEAN CORPUSCULAR HEMOGLOBIN 32.8 pg (27.0-34.0); MEAN CORPUSCULAR VOLUME 95.6 fL (80.0-100.0); MEAN PLATELET VOLUME 8.4 fL (7.4-11.0); MONOCYTES # (AUTO) 0.8 x10^3/uL (0.3-0.8); MONOCYTES % (AUTO) 6.4 % (0.0-13.0); NEUTROPHILS # (AUTO) 11.1 x10^3/uL (2.2-4.8); PLATELET COUNT 223 X10^3/uL (150.0-450.0); RED BLOOD COUNT 3.72 X10^6/uL (4.7-6.0); WHITE BLOOD COUNT 12.4 X10^3/uL (3.6-10.0)
[2023-11-13 05:14] LABS: ALANINE AMINOTRANSFERASE 10 Units/L (12-78); ALBUMIN 2.6 g/dL (3.4-5.0); ALKALINE PHOSPHATASE 58 Units/L (46-116); ASPARTATE AMINO TRANSFERASE 14 Units/L (15-37); BLOOD UREA NITROGEN 15 mg/dL (7-18); CALCIUM 8.2 mg/dL (8.5-10.1); CARBON DIOXIDE 21.9 mmol/L (21-32); CHLORIDE 106 mmol/L (98-107); COR CA(FOR HYPOALB) 9.3 mg/dL (8.5-10.1); COR NA(FOR HYPERGLY) 138 mmol/L (136-145); CREATININE 0.92 mg/dL (0.70-1.30); GLUCOSE 127 mg/dL (65-99); POTASSIUM 4.2 mmol/L (3.5-5.1); SODIUM 137 mmol/L (136-145); TOTAL PROTEIN 5.5 g/dL (6.4-8.2); eGFR NON BLACK RACES > 60 (>60)
--- NOTE | 2023-11-13 05:38 | RAD ---
EXAM:CHEST, 1 VIEWHISTORY:SOB; CA, CAD, HTN SX: ANGIOPLASTY/STENTS, TONSILS, PACEMAKERCOMPARISON:11/12/2023FINDINGS:T he cardiomediastinal silhouette is stable. Left-sided pacer and pacer wires unchanged.No acute airspace disease. No pneumothorax or effusion.No acute osseous abnormality.IMPRESSION:No acute cardiopulmonary disease.THIS IS AN ELECTRONICALLY VERIFIED FINAL REPORT11/13/2023 5:34 AM - Electronically signed by Jarrod Sanchez MD
--- NOTE | 2023-11-13 12:17 | PCM.PROG ---
Progress Note - Progress Note for Day of Date of Exam: 11/13/23 - Subjective Subjective: IS CURRENTLY INPATIENT STATUS FOR TREATMENT OF BILATERAL PNEUMONIA, COVID-19, CHF, ACUTE HYPONATREMIA, WEAKNESS, AND PHYSICAL DE CONDITIONING. PATIENT HAS HAD A RECENT STEMI AND IS STATUS POST PLACEMENT OF PACEMAKER AND CARDIAC STENTS. TODAY, HE IS ALERT AND ORIENTED, LYING IN BED ON MORNING ROUNDS. HE CONTINUES TO COMPLAIN OF GENERALIZED WEAKNESS THIS MORNING, BUT DOES ADMIT TO SOME IMPROVEMENT SINCE YESTERDAY. HE DENIES CHEST PAIN SINCE ADMISSION AND NURSING STAFF REPORTS THAT HE HAS HAD AN UNEVENTFUL NIGHT, OTHER THAN HIS BLOOD PRESSURE BEING ELEVATED. PATIENT ALSO DENIES HAVING A BOWEL MOVEMENT IN SEVERAL DAYS. UPON EXAMINATION, HEART IS REGULAR IN RATE AND RHYTHM. BILATERAL LUNGS ARE NOTED WITH DIMINISHED LUNG SOUNDS THROUGHOUT. ABDOMEN IS ROUND, SOFT, AND NON-TENDER WITH NORMAL BOWEL SOUNDS NOTED IN ALL QUADRANTS. DIFFUSE UPPER AND LOWER EXTREMITY WEAKNESS NOTED. HIS VITALS THIS MORNING WERE: 98.3-78-19-97%-168/86. LABS WERE OBTAINED. WBC 12.4, RBC 3.72, HGB 12.2, HCT 35.6, PLT COUNT 223, SODIUM 137, POTASSIUM 4.2, CHLORIDE 106, CARBON DIOXIDE 21.9, BUN 15, CREATININE 0.92, GLUCOSE 127, CALCIUM 8.2, TOTAL BILI 0.30, AST 14, ALT 10, ALK PHOS 58, TOTAL PROTEIN 5.5, ALBUMIN 2.6. AIT RESPIRATORY PANEL IS PENDING. SPUTUM CULTURE IS ALSO PENDING. A CHEST XRAY WAS REPEATED THIS MORNING AND REVEALED: The cardiomediastinal silhouette is stable. Left-sided pacer and pacer wires unchanged. No acute airspace disease. No pneumothorax or effusion. No acute osseous abnormality. HE IS CURRENTLY RECEIVING NORMAL SALINE AT 80 ML/HR, REMDESIVIR 100MG IV DAILY, LEVAQUIN 750MG IV DAILY, SOLU-MEDROL 40MG IV Q8H, TYLENOL 1G IV Q6H PRN, MAALOX 30ML Q4H PRN, GI COCKTAIL 15ML QID, PEPCID 20MG IV Q12H. HIS HOME MEDICATIONS OF ELIQUIS, PROTONIX, ZOCOR, SOTALOL, TAMSULOSIN, BRILINTA, AND TRAMADOL WERE RESUMED. TODAY, WE WILL ADD LOSARTAN 50MG DAILY, COLACE 100MG BID, MILK OF MAGNESIA 10ML QID, MIRALAX 17G DAILY. OTHERWISE, WE WILL CONTINUE WITH CURRENT PLAN OF CARE TODAY. WE WILL FOLLOW-UP WITH AM LABS AND CHEST XRAY AND CONTINUE TO MONITOR. TIME SPENT ON CLINICAL ASSE SSMENT, REVIEWING LABS AND IMAGING, DECISION MAKING, AND DOCUMENTATION GREATER THAN 45 MINUTES. - Past Medical Family Social History Past Med/Fam/Surg Hx: No changes since H&P Allergies: Allergies amoxicillin Allergy (Verified 11/11/23 00:04) nitroglycerin Allergy (Verified 11/11/23 00:04) - Review of Systems ROS: No change since H&P - Vital Signs and I&O's Vital Signs: Vital Signs Temperature 98.3 F Pulse Rate 92 Pulse Rate 72 Pulse Rate 78 Pulse Rate 73 Pulse Rate 75 Pulse Rate 69 Respiratory Rate 11 Respiratory Rate 14 Respiratory Rate 19 Respiratory Rate 40 Respiratory Rate 12 Respiratory Rate 56 Blood Pressure 170/96 Blood Pressure 165/88 Blood Pressure 168/86 Blood Pressure 174/85 Blood Pressure 173/91 Blood Pressure 178/89 O2 Sat by Pulse Oximetry 96 O2 Sat by Pulse Oximetry 98 O2 Sat by Pulse Oximetry 97 O2 Sat by Pulse Oximetry 98 O2 Sat by Pulse Oximetry 97 O2 Sat by Pulse Oximetry 98 Intake and Output: Intake & Output 11/11/23 11/12/23 11/13/23 11/14/23 11:59 11:59 11:59 11:59 Intake Total 694 / 694 3097 / 3097 3984 / 3984 Output Total 100 / 100 1999 / 1999 1425 / 1425 Balance 594 / 594 1097 / 1097 2559 / 2559 - Physical Exam Oriented: Normal Eyes: Normal Ear: Normal Nose: Normal Throat: Normal Respiratory: Generalized, Diminished Cardiovascular: Normal : Normal Auscultation: Bowel Sounds: Normal Tenderness: Normal Skin: Normal Musculoskeletal: Normal Psychiatric: Normal Mood Description: Calm Affect: Normal Speech Pattern: Clear, Appropriate - Laboratory and Diagnostics Result Diagrams: 11/13/23 04:06 11/13/23 04:06 Labs: 11/11/23 22:00 Sputum - Expectorated Sputum Sputum Culture - Preliminary 11/11/23 22:00 Sputum - Expectorated Sputum - Final Laboratory WBC 12.4 X10^3/uL (3.6-10.0) H 11/13/23 04:06 RBC 3.72 X10^6/uL (4.7-6.0) L 11/13/23 04:06 Hgb 12.2 g/dL (13.5-18.0) L 11/13/23 04:06 Hct 35.6 % (42.0-54.0) L 11/13/23 04:06 MCV 95.6 fL (80.0-100.0) 11/13/23 04:06 MCH 32.8 pg (27.0-34.0) 11/13/23 04:06 MCHC 34.3 g/dL (33.0-35.0) 11/13/23 04:06 RDW 12.8 % (11.6-16.5) 11/13/23 04:06 Plt Count 223 X10^3/uL (150.0-450.0) 11/13/23 04:06 MPV 8.4 fL (7.4-11.0) 11/13/23 04:06 Neut % (Auto) 89.5 % (42.0-75.0) H 11/13/23 04:06 Lymph % (Auto) 4.0 % (21.0-51.0) L 11/13/23 04:06 Merrick % (Auto) 6.4 % (0.0-13.0) 11/13/23 04:06 Eos % (Auto) 0.0 % (0.9-2.9) L 11/13/23 04:06 Baso % (Auto) 0.1 % (0.2-1.0) L 11/13/23 04:06 Neut # (Auto) 11.1 x10^3/uL (2.2-4.8) H 11/13/23 04:06 Lymph # (Auto) 0.5 X10^3/uL (1.3-2.9) L 11/13/23 04:06 Merrick # (Auto) 0.8 x10^3/uL (0.3-0.8) 11/13/23 04:06 Eos # (Auto) 0.0 x10^3/uL (0.0-0.2) 11/13/23 04:06 Baso # (Auto) 0.0 X10^3/uL (0.0-0.1) 11/13/23 04:06 Absolute Nucleated RBC 0.0 /100WBC 11/13/23 04:06 D-Dimer 0.66 ug/ml (0.0-0.57) H 11/10/23 15:40 Sodium 137 mmol/L (136-145) 11/13/23 04:06 Corrected Sodium 138 mmol/L (136-145) 11/13/23 04:06 Potassium 4.2 mmol/L (3.5-5.1) 11/13/23 04:06 Chloride 106 mmol/L (98-107) 11/13/23 04:06 Carbon Dioxide 21.9 mmol/L (21-32) 11/13/23 04:06 BUN 15 mg/dL (7-18) 11/13/23 04:06 Creatinine 0.92 mg/dL (0.70-1.30) 11/13/23 04:06 Est GFR (MDRD) Af Amer > 60 (>60) 11/13/23 04:06 Est GFR (MDRD) Non-Af > 60 (>60) 11/13/23 04:06 Glucose 127 mg/dL (65-99) H 11/13/23 04:06 Lactic Acid 0.8 mmol/L (0.4-2.0) 11/10/23 15:40 Calcium 8.2 mg/dL (8.5-10.1) L 11/13/23 04:06 Corrected Calcium 9.3 mg/dL (8.5-10.1) 11/13/23 04:06 Magnesium 2.0 mg/dL (2.0-2.9) 11/12/23 04:00 Total Bilirubin 0.30 mg/dL (0.2-1.0) 11/13/23 04:06 AST 14 Units/L (15-37) L 11/13/23 04:06 ALT 10 Units/L (12-78) L 11/13/23 04:06 Alkaline Phosphatase 58 Units/L (46-116) 11/13/23 04:06 Creatine Kinase 50 Units/L (39-308) 11/10/23 15:40 Troponin I High Sens 22.1 ng/L (4.0-60.0) 11/11/23 15:34 C-Reactive Protein 0.70 mg/L (0-3.0) 11/10/23 15:40 B-Natriuretic Peptide 114 pg/mL (0-79) H 11/10/23 15:40 Total Protein 5.5 g/dL (6.4-8.2) L 11/13/23 04:06 Albumin 2.6 g/dL (3.4-5.0) L 11/13/23 04:06 Globulin 2.9 g/dL (2.5-4.5) 11/13/23 04:06 Albumin/Globulin Ratio 0.9 Ratio (1.1-2.1) L 11/13/23 04:06 Specimen Type Clean catch urine 11/10/23 16:27 Urine Color Pale yellow (YELLOW) 11/10/23 16:27 Urine Appearance Clear (CLEAR) 11/10/23 16:27 Urine pH 7.0 (5.0 - 8.0) 11/10/23 16:27 Ur Specific M[place]hon 1.015 (1.000-1.030) 11/10/23 16:27 Urine Protein Negative (NEGATIVE) 11/10/23 16:27 Urine Glucose (UA) Negative (NEGATIVE) 11/10/23 16:27 Urine Ketones Negative (NEGATIVE) 11/10/23 16:27 Urine Blood Negative (NEGATIVE) 11/10/23 16:27 Urine Nitrite Negative (NEGATIVE) 11/10/23 16:27 Urine Bilirubin Negative (NEGATIVE) 11/10/23 16:27 Urine Urobilinogen Normal (NORMAL) 11/10/23 16:27 Ur Leukocyte Esterase Negative (NEGATIVE) 11/10/23 16:27 SARS-CoV-2 (PCR) Positive (NEGATIVE) A 11/10/23 15:42 Influenza Type A (PCR) Negative (NEGATIVE) 11/10/23 15:42 Influenza Type B (PCR) Negative (NEGATIVE) 11/10/23 15:42 RSV (PCR) Negative (NEGATIVE) 11/10/23 15:42 Resp Viral Panel (PCR) See scanned report 11/11/23 00:30 - Plan (1) Bilateral pneumonia Status: Acute Qualifiers: Pneumonia type: due to unspecified organism Lung location: unspecified part of lung Qualified Code(s): J18.9 - Pneumonia, unspecified organism Plan: SUPPLEMENTAL OXYGEN, OBTAIN ECHO, NORMAL SALINE AT 80 ML/HR, REMDESIVIR 100MG IV DAILY, LEVAQUIN 750MG IV DAILY, SOLU-MEDROL 40MG IV Q8H, TYLENOL 1G IV Q6H PRN, MAALOX 30ML Q4H PRN, GI COCKTAIL 15ML QID, PEPCID 20MG IV Q12H, LOSARTAN 50MG DAILY. HIS HOME MEDICATIONS OF ELIQUIS, PROTONIX, ZOCOR, SOTALOL, TAMSULOSIN, BRILINTA, AND TRAMADOL WERE RESUMED. (2) COVID-19 Status: Acute (3) CHF (congestive heart failure) Status: Acute Qualifiers: Heart failure type: unspecified Heart failure chronicity: acute Qualified Code(s): I50.9 - Heart failure, unspecified (4) Acute hyponatremia Status: Acute (5) Hypomagnesemia Status: Acute (6) Generalized weakness Status: Acute (7) Physical deconditioning Status: Acute (8) Recent ST elevation myocardial infarction (STEMI) Status: Acute (9) Status post coronary artery stent placement Status: Acute (10) Status post placement of other cardiac pacemaker Status: Acute (11) BPH (benign prostatic hyperplasia) Status: Chronic Qualifiers: Lower urinary tract symptom presence: unspecified whether lower urinary tract symptoms present Qualified Code(s): N40.0 - Benign prostatic hyperplasia without lower urinary tract symptoms (12) Hypertension Status: Chronic Qualifiers: Hypertension type: primary hypertension Qualified Code(s): I10 - Essential (primary) hypertension
[2023-11-13] MEDS: MILK OF MAGNESIA PO SCH (13:35)
[2023-11-13] MEDS: COLACE CAP 100 MG PO SCH (13:36)
[2023-11-13] MEDS: COZAAR PO SCH (13:36)
[2023-11-13 16:34] VITALS: RESP 18
[2023-11-13] MEDS: MIRALAX POWDER (1 DOSE 17 G) PO SCH (21:22)
--- NOTE | 2023-11-14 05:42 | RAD ---
EXAM:CHEST, 1 VIEWHISTORY:SOB; WA, CAD, HTN SX: ANGIO/STENTS PACEMAKERCOMPARISON:11/13/2023FINDINGS:T he cardiomediastinal silhouette is stable. Left-sided pacer and pacer wires unchanged.No acute airspace disease. No pneumothorax or effusion.No acute osseous abnormality.IMPRESSION:No acute cardiopulmonary disease.THIS IS AN ELECTRONICALLY VERIFIED FINAL REPORT11/14/2023 5:38 AM - Electronically signed by Jarrod Sanchez MD
[2023-11-14 06:22] LABS: BASOPHILS % (AUTO) 0.1 % (0.2-1.0); HEMATOCRIT 36.8 % (42.0-54.0); HEMOGLOBIN 12.7 g/dL (13.5-18.0); LYMPHOCYTES # (AUTO) 0.7 X10^3/uL (1.3-2.9); LYMPHOCYTES % (AUTO) 5.9 % (21.0-51.0); MEAN CORPUSCULAR HEMOGLOBIN 32.9 pg (27.0-34.0); MEAN CORPUSCULAR HGB CONC 34.4 g/dL (33.0-35.0); MEAN CORPUSCULAR VOLUME 95.5 fL (80.0-100.0); MEAN PLATELET VOLUME 8.6 fL (7.4-11.0); MONOCYTES # (AUTO) 0.8 x10^3/uL (0.3-0.8); MONOCYTES % (AUTO) 6.5 % (0.0-13.0); NEUTROPHILS % (AUTO) 87.5 % (42.0-75.0); PLATELET COUNT 226 X10^3/uL (150.0-450.0); RED BLOOD COUNT 3.85 X10^6/uL (4.7-6.0); RED CELL DISTRIBUTION WIDTH 13.1 % (11.6-16.5); WHITE BLOOD COUNT 12.5 X10^3/uL (3.6-10.0)
[2023-11-14 06:40] LABS: ALANINE AMINOTRANSFERASE 11 Units/L (12-78); ALBUMIN 2.7 g/dL (3.4-5.0); ALKALINE PHOSPHATASE 52 Units/L (46-116); ASPARTATE AMINO TRANSFERASE 20 Units/L (15-37); BLOOD UREA NITROGEN 20 mg/dL (7-18); CALCIUM 8.1 mg/dL (8.5-10.1); CARBON DIOXIDE 23.8 mmol/L (21-32); CHLORIDE 104 mmol/L (98-107); COR CA(FOR HYPOALB) 9.1 mg/dL (8.5-10.1); COR NA(FOR HYPERGLY) 135 mmol/L (136-145); CREATININE 0.99 mg/dL (0.70-1.30); GLUCOSE 115 mg/dL (65-99); POTASSIUM 4.1 mmol/L (3.5-5.1); SODIUM 135 mmol/L (136-145); TOTAL PROTEIN 5.4 g/dL (6.4-8.2); eGFR NON BLACK RACES > 60 (>60)
[2023-11-14 10:34] VITALS: O2SAT 96
[2023-11-14 12:11] VITALS: BP 167/80; PULSE 59; TEMP 98.8
== END 2023-11-14 13:05 | disposition home or self-care (01) | DRG 177 ==
LOC: ER 15:16 → ICU 22:55 → MED/SURG 11-13 14:23
PROVIDERS: ADMIT Internal Medicine; ATTEND Internal Medicine
DX: R06.02 Shortness of breath; Z95.0 Presence of cardiac pacemaker; E83.42 Hypomagnesemia; E87.1 Hypo-osmolality and hyponatremia; I50.9 Heart failure, unspecified; I25.10 Atherosclerotic heart disease of native coronary artery without angina pectoris; I11.0 Hypertensive heart disease with heart failure; R53.81 Other malaise; R53.1 Weakness; U07.1 COVID-19; N40.0 Benign prostatic hyperplasia without lower urinary tract symptoms; Z79.01 Long term (current) use of anticoagulants; I25.2 Old myocardial infarction; J12.82 Pneumonia due to coronavirus disease 2019